=== PATIENT | male | born 1995 | race Caucasian/White ===

== ENCOUNTER 2025-01-04 22:43 | Emergency (ER) | payer OTHER, SELFPAY ==
--- NOTE | ~2025-01-04 | CT_ITS ---
CLINICAL HISTORY: n v CT abdomen and pelvis with contrast Comparison: None provided Findings: No consolidation or effusion. Unremarkable gallbladder and solid organs. No urolithiasis. No bowel obstruction, pneumoperitoneum, or pneumatosis. Pelvic contents unremarkable. Normal appendix. The bones are intact. IMPRESSION: No acute findings. This document has been electronically signed by: Jaret Montaño MD, PHD on 01/05/2025 04:48:30
[2025-01-04 22:49] VITALS: PULSE 72; O2SAT 100; BMI 23.0
[2025-01-04 23:05] VITALS: BP 100/53; PULSE 70; RESP 22; TEMP 36.7; O2SAT 98
--- NOTE | 2025-01-04 23:08 | ED.NAVMDI ---
HPI - Nausea/Vomiting/Diarrhea General Chief complaint: Nausea/Vomiting/Diarrhea Stated complaint: not feeling well Time Seen by Provider: 01/04/25 22:49 History of Present Illness HPI Narrative: Patient is a 29-year-old male presents today with nausea vomiting unable to tolerate fluids after going to the [facility]. Patient denies using marijuana complaining of extreme nausea vomiting diffuse abdominal pain. Denies having a history of this. No surgery done in the abdomen and passed. No record here at [facility]. Patient is from home. Denies any cocaine any heroin any other recreational drugs. Related Data Previous Rx's ?Medication ?Instructions ?Recorded ondansetron 4 mg disintegrating 4 mg PO Q8H PRN nausea and 01/05/25 tablet vomiting #10 tabs Allergies Allergy/AdvReac Type Severity Reaction Status Date / Time Penicillins Allergy Hives Verified 01/04/25 22:56 Review of Systems Review of Systems: Positive abdominal cramping Yes all other systems are reviewed and are negative PMFSH Past Medical History Attestation statement: The following information was validated with the patient. Social History Social History Alcohol intake: former Smoked in Last 30 Days: Yes Use of substances other than those prescribed or required for medical reasons: Yes Substance Use Type: Marijuana Substance Use Frequency: Daily Advance Directives: No Advance Directives Information Provided: Yes Physical Exam Exam: Exam: Appearance: Alert. Oriented X3. No acute distress. Eyes: Pupils equal, round and reactive to light. ENT: Pharynx normal. Neck: Normal inspection. Neck supple. No lymph nodes noted. No crepitus CVS: Normal heart rate and rhythm. Pulses normal. Normal S1 and S2 Respiratory: No respiratory distress. Breath sounds normal. No Wheezing. No rales Abdomen: Soft and nontender. No rigidity. No distention. good BS x4 Skin: Skin warm and dry. Normal skin color. Normal skin turgor. Extremities: No lower extremity edema. Neurovascular intact to all extremities. No Lacerations. No Rash Neuro: Oriented X 3. No motor deficit. No sensory deficit. Moving all extermities. No slurred speech Vital Signs: Vital Signs: Last Vital Signs Temp 98.5 F 01/05/25 02:43 Pulse 70 01/05/25 02:43 Resp 14 01/05/25 02:43 BP 123/71 01/05/25 02:43 Pulse Ox 98 01/05/25 02:43 O2 Del Method Room Air 01/05/25 02:43 BMI result Body Mass Index 23.0 Medications Administered Discontinued Medications Generic Name Dose Route Start Last Admin Trade Name Freq PRN Reason Stop Dose Admin Droperidol 0.625 mg 01/04/25 23:01 01/04/25 23:19 Droperidol 5 Mg/2 Ml Vial IVPUSH 01/04/25 23:02 0.625 mg ONCE ONE Administration Droperidol 0.625 mg 01/04/25 23:59 01/05/25 00:09 Droperidol 5 Mg/2 Ml Vial IVPUSH 01/05/25 00:00 0.625 mg ONCE ONE Administration Sodium Chloride 1,000 mls @ 999 mls/hr 01/04/25 23:00 01/04/25 23:19 Ns IV 01/05/25 00:00 999 mls/hr .Q1H1M NURA Administration Sodium Chloride 1,000 mls @ 999 mls/hr 01/04/25 23:00 01/04/25 23:19 Ns IV 01/05/25 00:00 999 mls/hr .Q1H1M NURA Administration Iohexol 85 ml 01/05/25 01:25 01/05/25 01:26 Iohexol 350 Mg/Ml 100 Ml Infus..Btl IV 01/05/25 01:26 85 ml ONCE ONE Administration Ketorolac Tromethamine 30 mg 01/04/25 22:59 01/04/25 23:19 Ketorolac Tromethamine 30 Mg/Ml Vial IVPUSH 01/04/25 23:00 30 mg ONCE ONE Administration Medical Decision Making Medical Decision Making MDM Narrative: Patient presented with extreme nausea vomiting. No history of abdominal surgery. 2 L of fluid was given. Patient's labs showed an elevated white count. Electrolytes showed a fairly normal LFT. Lipase was normal. My interpretation patient's CT scan showed no gross obstruction. The CT scan reading per Radiology is still pending. Will monitor. Patient given 2 doses droperidol moderate relief of patient's nausea. Currently sleeping. 5:24 AM 01/05/2025 (Dr. Debby Ramos, D.O.) CT does not show evidence of acute process. Patient feeling improved, tolerating oral intake without issue. Stable for discharge home and outpatient follow up. Patient understands and agrees with plan for discharge. Differential Diagnosis Differential Diagnoses: The differential diagnosis associated with the presentation includes Hyperemesis Admission/Observation Consideration of admission/observation: Escalation of care including admission/observation considered Lab Data MDM Lab Attestation statement: I reviewed the patient's lab results. 01/04/25 23:12 01/04/25 23:12 Labs: Lab Results 01/04/25 01/05/25 Range/Units 23:12 02:47 WBC 14.0 H (4.8-10.8) X10*3/uL RBC 4.93 (4.60-5.80) X10*6/uL Hgb 15.2 (14.0-18.0) g/dl Hct 42.3 (42.0-52.0) % MCV 85.8 (80.0-98.0) fL MCH 30.8 (27.0-33.0) pg MCHC 35.9 (31.0-36.0) g/dl RDW 11.9 (11.0-16.0) % Plt Count 223 (160-400) X10*3/uL MPV 11.3 (9.4-12.4) fL Immature Gran % (Auto) 0.4 (0.0-0.4) % Neut % (Auto) 71.9 (45-73) % Lymph % (Auto) 17.9 L (20-40) % Bollinger % (Auto) 8.8 (2-11) % Eos % (Auto) 0.4 (0-4) % Baso % (Auto) 0.6 (0-2) % Lymph # (Auto) 2.5 (1.2-4.9) X10*3/uL Bollinger # (Auto) 1.2 (0.1-1.2) X10*3/uL Eos # (Auto) 0.1 (0.0-0.4) X10*3/uL Baso # (Auto) 0.1 (0.0-0.2) X10*3/uL Abs Immat Gran (auto) 0.06 H (0.00-0.03) X10*3/uL Absolute Neuts (auto) 10.1 H (2.0-8.3) x10*3/uL Absolute Nucleated RBC 0.000 (0.0-0.012) X10*3/uL Nucleated RBC % (auto) 0.0 (0.0-0.2) /100WBC Sodium 141 (135-145) mmol/L Potassium 3.7 (3.3-5.1) mmol/L Chloride 105 (96-108) mmol/L Carbon Dioxide 22 (22-29) mmol/L Anion Gap 18 (12-20) BUN 14 (9-16) mg/dL Creatinine 1.22 (0.5-1.4) mg/dL Estim Creat Clear Calc 95.4 Estimated GFR > 60 Random Glucose 125 H (60-115) mg/dL Calcium 9.7 (8.4-10.2) mg/dL Total Bilirubin 0.8 (0.0-1.0) mg/dL Direct Bilirubin 0.3 (0.0-0.5) mg/dL AST 31 (5-37) U/L ALT 25 (0-40) U/L Alkaline Phosphatase 86 (39-117) U/L Total Protein 8.1 H (6.5-8.0) g/dL Albumin 5.2 H (3.5-5.0) g/dL Lipase 16 (8-78) U/L Urine Color Yellow Urine Appearance Clear Urine pH 7.0 (5.0-9.0) Ur Specific Horatio >= 1.030 H (1.005-1.025) Urine Protein 30 (1+) H (Neg-Trace) mg/dL Urine Glucose (UA) Negative (Negative) mg/dL Urine Ketones 80 (Negative) mg/dL Urine Blood Negative (Negative) Urine Nitrite Negative (Negative) Ur Leukocyte Esterase Negative (Negative) Urine RBC 0-2 (0-2) /HPF Urine WBC 0-5 (0-5) /HPF Ur Squamous Epith Cells 0-2 (0-2) /HPF Urine Bacteria None Seen (None Seen) Hyaline Casts 0-2 (0-2) /LPF Urine Opiates Screen Not Detected (Not Detect) Ur Buprenorphine Scrn Not Detected (Not Detect) ng/mL Ur Oxycodone Screen Not Detected (Not Detect) ng/mL Urine Methadone Screen Not Detected (Not Detect) ng/mL Urine Fentanyl Screen Not Detected (Not Detect) Ur Barbiturates Screen Not Detected (Not Detect) Ur Phencyclidine Scrn Not Detected (Not Detect) Ur Amphetamines Screen Not Detected (Not Detect) U Benzodiazepines Scrn Not Detected (Not Detect) Urine Cocaine Screen Not Detected (Not Detect) U Marijuana (THC) Screen POSITIVE H (Not Detect) Independent Interpretation I performed an independent interpretation of an: CT Scan (No gross obstruction) Radiology Impression Discussion of test interpretation with radiology: I have reviewed the radiologist's reading. Radiologist Impression: CT abdomen and pelvis with contrast Comparison: None provided Findings: No consolidation or effusion. Unremarkable gallbladder and solid organs. No urolithiasis. No bowel obstruction, pneumoperitoneum, or pneumatosis. Pelvic contents unremarkable. Normal appendix. The bones are intact. IMPRESSION: No acute findings. This document has been electronically signed by: Jaret Montaño MD, PHD on 01/05/2025 04:48:30 Discharge Plan Discharge Clinical Impression: Cannabis hyperemesis syndrome concurrent with and due to cannabis abuse Patient Disposition: Home, Self-Care Instructions: Acute Nausea and Vomiting (ED), Cannabis Use Disorder (ED) Additional Instructions: Return to the ER with any new or worsening symptoms including: Worsening abdominal pain, inability to tolerate food or drink despite medications, any new symptom that concerns you. Call 911 with any medical emergency. Prescriptions: New ondansetron 4 mg tablet,disintegrating 4 mg PO Q8H PRN (Reason: nausea and vomiting) Qty: 10 0RF Print Language: Tajik
[2025-01-04 23:17] LABS: MANUAL DIFF FLAG NO
[2025-01-04 23:18] LABS: Hematocrit 42.3 % (42.0-52.0); Hemoglobin 15.2 g/dl (14.0-18.0); Imm Gran Abs Auto 0.06 X10*3/uL (0.00-0.03); Imm Gran Pct Auto 0.4 % (0.0-0.4); Lymphocytes Absolute Auto 2.5 X10*3/uL (1.2-4.9); Mean Corpuscular HGB Conc 35.9 g/dl (31.0-36.0); Mean Corpuscular Hemoglobin 30.8 pg (27.0-33.0); Mean Corpuscular Volume 85.8 fL (80.0-98.0); NRBC Abs Auto 0.000 X10*3/uL (0.0-0.012); NRBC Pct Auto 0.0 /100WBC (0.0-0.2); Platelet Count 223 X10*3/uL (160-400); Red Blood Count 4.93 X10*6/uL (4.60-5.80); White Blood Count 14.0 X10*3/uL (4.8-10.8)
[2025-01-04 23:32] LABS: Alanine Aminotransferase 25 U/L (0-40); Albumin Level 5.2 g/dL (3.5-5.0); Alkaline Phosphatase 86 U/L (39-117); Anion Gap 18 (12-20); Aspartate Amino Transferase 31 U/L (5-37); Blood Urea Nitrogen 14 mg/dL (9-16); Calcium 9.7 mg/dL (8.4-10.2); Carbon Dioxide 22 mmol/L (22-29); Chloride 105 mmol/L (96-108); Creatinine Clr Calc Pharmacy 95.4; Estimated Glomerular Filt Rate > 60; Lipase 16 U/L (8-78); Potassium 3.7 mmol/L (3.3-5.1); Sodium 141 mmol/L (135-145); Total Protein 8.1 g/dL (6.5-8.0)
[2025-01-05 00:33] VITALS: BP 112/54; PULSE 54; RESP 20; TEMP 36.6; O2SAT 100
--- OUTSIDE RECORDS SUMMARY | 2025-01-05 00:44 | XMS_ITS | Clinical Summary ---
Author Organization [facility] Address [address] [place], [place] [id number] Phone Care Team Providers Care Portfolio Specialist Name Role Phone Javy Malhotra MD Primary Care Provider [phone] Immunizations Immunization Administration Dates Next Due DTaP 5 01/19/2001, 9,05/06/1997, 997,1996 Hep B, ped/adol 05/06/1997,1996,1996 Hib (PRP-T) 12/26/1997, 8,01/16/1997, 997 IPV 02/24/1998,01/16/1997,1996 MMR 09/13/2001,12/26/1997 Meningococcal Conj (Menactra) MCV4P 12/28/2007 OPV 01/19/2001,06/24/1998 Tdap 12/28/2007 Varicella 12/28/2007,08/30/1997 Social History Tobacco Use Types Packs/Day Years Used Date Smoking Tobacco: Every Day Comments:Current Everyday Sm oker Sex and Gender Information Value Date Recorded Sex Assigned at Not on file Legal Sex Male 6:32 PM EDT Gender Identity Not on file Sexual Orientation Not on file Last Filed Vital Signs Vital Sign Reading Time Taken Comments Blood Pressure - - Pulse 84 09/06/2011 12:07 PM EDT Temperature 36.9 C (98.4 F) 01/13/2016 11:21 AM EDT Respiratory Rate - - Oxygen Saturation - - Inhaled Oxygen Concentration - - Weight 72.1 kg (159 lb) 01/13/2016 11:21 AM EDT Height 173.4 cm (5' 8.25 ) 09/20/2013 4:51 PM ED T Body Mass Index - - Plan of Treatment Health Maintenance Due Date Last Done Comments Hepatitis B Vaccines (3 of 3 - 3-dose series) 07/01/1997 05/06/1997, 1996, 1996 DTaP,Tdap,and Td Vaccines (7 - Td or Tdap) 12/27/2017 12/28/2007, 01/19/2001, 06/24/1998, Additional history exists HPV Vaccines (1 - 3-dose SCDM series) 09/04/2023 Influenza Vaccines (#1) 2024 COVID-19 Vaccine (2023- season) 2024 HIB Vaccines Completed 12/26/1997, 04/18, 01/16/1997, Additional history exists IPV Vaccines Completed 01/19/2001, 12/1998, 02/24/1998, Additional history exists MMR Vaccines Completed 09/13/2001, 12/26/1997 Meningococcal Vaccine Aged Out 12/28/2007 No katrina sergio eligible based on patient's age to complete this topic Varicella Vaccines Completed 12/28/2007, 08/30/1997 Hepatitis A Vaccines Aged Out No long er eligible based on patient's age to complete this topic Men B Vaccine Aged Out No longer elig ible based on patient's age to complete this topic Pneumococcal Vaccine Aged Out No long er eligible based on patient's age to complete this topic Care Teams Portfolio Specialist Relationship Specialty Start Date End Date Javy Malhotra MD [facility] [place] [address] PCP - General 08/24/17
--- OUTSIDE RECORDS SUMMARY | 2025-01-05 00:44 | XMS_ITS | Encounter Summary ---
Author Organization [facility] Address [address] [place] [address] Phone Care Team Providers Care Aged Or Disabled Care Worker Name Role Phone Javy Malhotra MD Primary Care Provider [phone] Encounter Details Date Type Department Care Team (Late st Contact Info) Description 06/09/2010 Conversion Encounter [facility] [address] [place] [address] Social History Tobacco Use Types Packs/Day Years Used Date Smoking Tobacco: Never Assessed Sex and Gender Information Value Date Recorded Sex Assigned at Not on file Legal Sex Male 6:32 PM EDT Gender Identity Not on file Sexual Orientation Not on file documented as of this encounter Plan of Treatment Not on file documented as of this encounter Visit Diagnoses Not on filedocumented in this encounter Care Teams Aged Or Disabled Care Worker Relationship Specialty Start Date End Date Javy Malhotra MD [address] [place] [address] PCP - General 08/24/17 documented as of this encounter
[2025-01-05] MEDS: iohexoL 350 MG/ML 100 ML INFUS..BTL 85 ML IV (01:26)
[2025-01-05 02:43] VITALS: BP 123/71; PULSE 70; RESP 14; TEMP 36.9; O2SAT 98
[2025-01-05 02:54] LABS: Appearance Urine Clear; Glucose Urine UA Negative (Negative); PH 7.0 (5.0-9.0); Specific Gravity - Urine >= 1.030 (1.005-1.025); UMIC TRIGGER UACC YES
[2025-01-05 03:10] LABS: Cannabinoid Screen Urine POSITIVE (Not Detect)
[2025-01-05 05:27] VITALS: BP 121/66; PULSE 81; RESP 14; TEMP 36.9; O2SAT 98
[2025-01-05 05:33] VITALS: BP 121/66; PULSE 81; RESP 14; TEMP 36.9; O2SAT 98
== END 2025-01-05 05:34 | disposition home or self-care (01) ==
PROVIDERS: Emergency Medicine Emergency Medical Services; Emergency Provider Emergency Medicine; PCP Family Medicine
DX: R11.2 Nausea with vomiting, unspecified (principal); F12.120 Cannabis abuse with intoxication, uncomplicated; Z51.81 Encounter for therapeutic drug level monitoring; Z79.899 Other long term (current) drug therapy
CPT/HCPCS: 36415; 74177; 80048; 80076; 80307; 81001; 83690; 85025; 96361; 96374; 96375; 96376; 99284; J1790; J1885; Q9967

== ENCOUNTER → 2025-01-05 01:17 | Outpatient (BNV) | payer OTHER, SELFPAY | PROVIDERS: Emergency Provider Emergency Medicine; PCP Family Medicine; Visit Provider General Practice | DX: R11.2 Nausea with vomiting, unspecified (principal) | CPT/HCPCS: 74177 ==